=== PATIENT | female | born 1985 | race Hispanic/Latino ===

== ENCOUNTER → 2018-10-22 | Outpatient (CLI) | payer MEDICAID ==
[~2018-10-22] VITALS: Ht 154.9 cm; Wt 86.2 kg
[~2018-10-22] MED LIST: CEFAZOLIN SODIUM 1 GM VIAL IVP SCH; LACTATED RINGERS 1000ML 1,000 ML IV SCH
[2018-10-22 15:04] VITALS: BP 118/62
[2018-10-22 15:04] LABS: BASOPHILS % (AUTO) 0.5 % (0.0-5.0); EOSINOPHILS % (AUTO) 3.7 % (0.0-8.0); HEMATOCRIT 40.3 % (36-48); LYMPHOCYTES % (AUTO) 44.4 % (21.0-51.0); MEAN CORPUSCULAR HEMOGLOBIN 23.7 pg (27.0-33.0); MEAN CORPUSCULAR HGB CONC 31.7 g/dL (32.0-36.0); MEAN CORPUSCULAR VOLUME 74.8 fL (79-99); MONOCYTES % (AUTO) 7.5 % (3.0-13.0); NEUTROPHILS % (AUTO) 43.9 % (40.0-77.0); PLATELET COUNT (AUTO) 236 K/uL (130-400); RED BLOOD CELL COUNT(AUTO) 5.39 MIL/uL (4.00-5.50); RED CELL DISTRIBUTION WIDTH 17.8 % (11.0-15.5); WHITE BLOOD COUNT (AUTO) 6.5 K/uL (4.8-10.8)
== END ==
LOC: DAH 10:00 → EDSTATUS 10-23 07:00 → DAH 10-23 10:00
PROVIDERS: ATTEND Obstetrics & Gynecology
DX: Z30.2 Encounter for sterilization (principal); Z53.9 Procedure and treatment not carried out, unspecified reason
CPT/HCPCS: 36415; 84702; 85025; 86850; 86900; 86901

== ENCOUNTER 2019-07-21 11:39 | Emergency (ER) | payer MEDICAID, OTHER | END 2019-07-21 12:51 | disposition home or self-care (01) | LOC: EDH 11:39 | DX: G44.209 Tension-type headache, unspecified, not intractable (principal); R42 Dizziness and giddiness; Z90.49 Acquired absence of other specified parts of digestive tract | CPT/HCPCS: 99281 ==